=== PATIENT | female | born 1930 | race Caucasian/White ===

== ENCOUNTER 2018-05-05 13:14 | Emergency (ER) | payer OTHER, MEDICARE ==
[~2018-05-05] VITALS: Ht 157.5 cm; Wt 61.2 kg
[2018-05-05 14:49] LABS: HEMATOCRIT 40.8 % (37.0-47.0); MCH 29.2 pg (26.0-34.0); MCHC 34.3 g/dL (28.0-37.0); MCV 85.3 fL (80.0-100.0); PLATELET COUNT 376 thou/uL (150-400); RBC 4.78 mil/uL (4.20-5.00); RDW 13.9 % (10.5-14.5); WBC 23.4 thou/uL (4.0-11.0)
[2018-05-05 14:51] LABS: URINE BILIRUBIN NEGATIVE (Negative); URINE BLOOD NEGATIVE (Negative); URINE CLARITY CLEAR; URINE COLOR YELLOW; URINE GLUCOSE-RANDOM* NEGATIVE (Negative); URINE KETONES 1+ (Negative); URINE LEUKOCYTES-REFLEX NEGATIVE (Negative); URINE NITRITE-REFLEX NEGATIVE (Negative); URINE PROTEIN (DIPSTICK) 1+ (Negative); URINE SPECIFIC GRAVITY 1.025 (1.005-1.035); URINE UROBILINOGEN 0.2 E.U./dl (0.2-1.0)
[2018-05-05 14:58] LABS: CRYSTALS None Seen /LPF (None Seen); HYALINE CASTS 0-3 Few /LPF (None Seen); SQUAMOUS 0-3 Few /LPF (0-3); URINE RBC None Seen /HPF (0-2); URINE WBC-REFLEX None Seen /HPF (0-5)
[2018-05-05 14:59] LABS: BACTERIA-REFLEX 1-9 Few /HPF (None Seen)
[2018-05-05 15:04] LABS: ANION GAP 16 mmol/L (7-16); BUN 23 mg/dL (7-18); CALCIUM 9.9 mg/dL (8.5-10.1); CHLORIDE 95 mmol/L (98-107); CO2 21 mmol/L (21-32); CREATININE 1.5 mg/dL (0.6-1.0); GLUCOSE 254 mg/dL (74-106); POTASSIUM 3.9 mmol/L (3.5-5.1); SODIUM 132 mmol/L (136-145)
[2018-05-05 15:07] LABS: ALBUMIN 4.4 g/dL (3.4-5.0); SGOT 21 U/L (15-37); SGPT 30 U/L (30-65); TOTAL BILIRUBIN 0.5 mg/dL (<0.1-1.0); TOTAL PROTEIN 8.1 g/dL (6.4-8.2); TROPONIN-I <0.06 ng/mL (<0.06)
[2018-05-05 15:13] LABS: ABSOLUTE NEUTROPHILS 19.9 thou/uL (1.4-8.2)
[2018-05-05 15:14] LABS: ANISOCYTOSIS 1+; POLYCHROMASIA OCCASIONAL
[2018-05-05] MEDS ORDERED: ZOFRAN ODT4 MG PO (15:41)
[2018-05-05 15:59] VITALS: BP 143/77
--- NOTE | 2018-05-05 17:00 | EKG ---
[place] [address] [facility] [place] [address] ELECTROCARDIOGRAM REPORT Name: AURA KAMARA Room #: DEP [facility]#: [id number] ������������������ Admission: 05/05/18 ������������������ Attend Phys: Discharge: 05/05/18 ������������������ Date of : 32 Report #: [id number] ����������������������������������������������������������������� [id number] THIS REPORT FOR: //name// [facility] ED Test Date: 2018-05-05 Test Time: 14:21:51 Pat Name: AURA KAMARA Department: Room: Gender: F [employer]: [place] : 1930 Requested By: Topher Pierson Order Number: [id number] MD: Riley Raya Measurements Intervals [place] Rate: 93 P: 54 AK: 171 QRS: 54 QRSD: 93 T: 14 QT: 387 QTc: 482 Interpretive Statements Sinus rhythm Multiple premature complexes, vent & supraven Borderline prolonged QT interval Nonspecific ST segment abnormality No previous ECG available for comparison Electronically Signed On 05-05-2018 17:00:28 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
[2018-05-06] MEDS ORDERED: LISINOPRIL40 MG PO (04:31)
[2018-05-06] MEDS ORDERED: NORVASC5 MG PO ×2 (04:32)
[2018-05-06] MEDS ORDERED: ATIVAN0.5 MG PO (04:32)
[2018-05-06] MEDS ORDERED: NITROFURANTOIN50 M2 PO (04:35)
[2018-05-06] MEDS ORDERED: LORCET 5-325 M1 EACH PO (04:35)
[2018-05-06] MEDS ORDERED: PEPTO-BISM262 MG/15 PO (04:36)
[2018-05-06] MEDS ORDERED: ZANTAC 150MG T150 MG PO (04:36)
[2018-05-06] MEDS ORDERED: GAVISCON ES CH1 EAC1 PO (04:37)
[2018-05-06] MEDS ORDERED: SLEEP AID25 MG PO (04:38)
[2018-05-06] MEDS ORDERED: SENNA-DOCUSATE1 EAC1 PO (07:43)
[2018-05-06] MEDS ORDERED: FLAGYL500 M1 PO (07:43)
[2018-05-06] MEDS ORDERED: CIPROFLOXACIN500 M1 PO (07:43)
[2018-05-06] MEDS ORDERED: ZOFRAN ODT4 MG PO (07:43)
== END 2018-05-05 16:00 | disposition home or self-care (01) ==
LOC: ER 13:14
PROVIDERS: Emergency Medicine
DX: R55 Syncope and collapse (principal); K59.00 Constipation, unspecified; Z85.828 Personal history of other malignant neoplasm of skin; E78.5 Hyperlipidemia, unspecified; I10 Essential (primary) hypertension; Z90.710 Acquired absence of both cervix and uterus; Z88.2 Allergy status to sulfonamides; Z91.041 Radiographic dye allergy status

== ENCOUNTER 2018-05-06 03:53 | Emergency (ER) | payer OTHER, MEDICARE ==
[~2018-05-06] VITALS: Ht 154.9 cm; Wt 62.1 kg
[~2018-05-06 03:53] MED LIST: ZOFRAN ODT4 MG PO
[2018-05-06] MEDS ORDERED: LISINOPRIL40 MG PO (04:31)
[2018-05-06] MEDS ORDERED: NORVASC5 MG PO ×2 (04:32)
[2018-05-06] MEDS ORDERED: ATIVAN0.5 MG PO (04:32)
[2018-05-06] MEDS ORDERED: NITROFURANTOIN50 M2 PO (04:35)
[2018-05-06] MEDS ORDERED: LORCET 5-325 M1 EACH PO (04:35)
[2018-05-06] MEDS ORDERED: PEPTO-BISM262 MG/15 PO (04:36)
[2018-05-06] MEDS ORDERED: ZANTAC 150MG T150 MG PO (04:36)
[2018-05-06] MEDS ORDERED: GAVISCON ES CH1 EAC1 PO (04:37)
[2018-05-06] MEDS ORDERED: SLEEP AID25 MG PO (04:38)
[2018-05-06 04:41] LABS: ABSOLUTE NEUTROPHILS 15.6 thou/uL (1.4-8.2); BASOPHILS 0.5 % (0.0-2.0); EOSINOPHILS 0.4 % (0.0-3.0); HEMATOCRIT 39.8 % (37.0-47.0); HEMOGLOBIN 13.8 gm/dL (12.0-15.0); LYMPHOCYTES 9.9 % (24.0-44.0); MCH 29.4 pg (26.0-34.0); MCHC 34.8 g/dL (28.0-37.0); MCV 84.6 fL (80.0-100.0); MONOCYTES 5.4 % (1.0-8.0); PLATELET COUNT 366 thou/uL (150-400); POLYS 83.8 % (36.0-66.0); RDW 13.7 % (10.5-14.5); WBC 18.6 thou/uL (4.0-11.0)
[2018-05-06 04:51] LABS: CALCIUM 9.2 mg/dL (8.5-10.1); CREATININE 1.3 mg/dL (0.6-1.0); POTASSIUM 4.3 mmol/L (3.5-5.1)
[2018-05-06 04:56] LABS: TOTAL BILIRUBIN 0.5 mg/dL (<0.1-1.0); TOTAL PROTEIN 7.7 g/dL (6.4-8.2)
[2018-05-06 05:00] LABS: APTT 28.9 Seconds (24.5-32.8); PROTIME 10.5 Seconds (9.3-11.4)
[2018-05-06 07:01] LABS: URINE BILIRUBIN NEGATIVE (Negative); URINE BLOOD NEGATIVE (Negative); URINE CLARITY CLEAR; URINE COLOR YELLOW; URINE GLUCOSE-RANDOM* NEGATIVE (Negative); URINE KETONES NEGATIVE (Negative); URINE LEUKOCYTES-REFLEX NEGATIVE (Negative); URINE NITRITE-REFLEX NEGATIVE (Negative); URINE PROTEIN (DIPSTICK) NEGATIVE (Negative); URINE SPECIFIC GRAVITY <= 1.005 (1.005-1.035); URINE UROBILINOGEN 0.2 E.U./dl (0.2-1.0)
[2018-05-06] MEDS ORDERED: FLAGYL500 M1 PO (07:43)
[2018-05-06] MEDS ORDERED: ZOFRAN ODT4 MG PO (07:43)
[2018-05-06] MEDS ORDERED: CIPROFLOXACIN500 M1 PO (07:43)
[2018-05-06] MEDS ORDERED: SENNA-DOCUSATE1 EAC1 PO (07:43)
[2018-05-06 10:09] VITALS: BP 153/70
== END 2018-05-06 10:30 | disposition home or self-care (01) ==
LOC: ER 03:53
PROVIDERS: Emergency Medicine
DX: K57.32 Diverticulitis of large intestine without perforation or abscess without bleeding (principal); I12.9 Hypertensive chronic kidney disease with stage 1 through stage 4 chronic kidney disease, or unspecified chronic kidney disease; N18.9 Chronic kidney disease, unspecified; D72.829 Elevated white blood cell count, unspecified; K92.1 Melena; E78.5 Hyperlipidemia, unspecified; Z91.041 Radiographic dye allergy status; Z88.2 Allergy status to sulfonamides; Z90.710 Acquired absence of both cervix and uterus; Z85.828 Personal history of other malignant neoplasm of skin